=== PATIENT | female | born 1985 | race American Indian/Alaskan Native ===

== ENCOUNTER 2017-01-11 19:48 | Emergency (ER) | payer MEDICAID ==
--- NOTE | 2017-01-11 22:28 | Emergency Department Report ---
ED General Adult HPI - General Chief complaint: Upper Respiratory Infection Stated complaint: DIZZY, SORE THROAT, HEADACHE Time Seen by Provider: 01/11/17 22:14 Source: patient Mode of arrival: Ambulatory Limitations: No Limitations - History of Present Illness Initial comments: PT c/o flu symptoms that started Tuesday night. PT c/o fever, cough, chills, body aches and headache. 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 PT states she worked last night and her symptoms were worse. PT states she felt sob while at the club. PT states she took Theraflu today and it helped her fever. MD Complaint: fever -: Gradual Location: head, chest Severity scale (0 -10): 9 Quality: aching Consistency: constant Improves with: medication (helps fever ) Worsens with: other (working ) Associated Symptoms: fever/chills, headaches, loss of appetite, malaise, shortness of breath. denies: chest pain, nausea/vomiting - Related Data Previous Rx's Medication Instructions Recorded Last Taken Type Albuterol Sulfate [Ventolin HFA] 2 puff IH Q4H PRN #1 hfa.aer.ad 01/11/17 Unknown Rx Benzonatate [Tessalon Perles] 100 mg PO Q8HR PRN #12 capsule 01/11/17 Unknown Rx Ibuprofen [Motrin] 600 mg PO Q8H PRN #15 tablet 01/11/17 Unknown Rx Allergies Allergy/AdvReac Type Severity Reaction Status Date / Time acetaminophen [From Percocet] Allergy Rash Verified 10/03/15 11:25 oxycodone HCl [From Percocet] Allergy Rash Verified 10/03/15 11:25 ED Review of Systems ROS: Stated complaint: DIZZY, SORE THROAT, HEADACHE Other details as noted in HPI Comment: All other systems reviewed and negative Constitutional: fever, malaise Respiratory: cough ED Past Medical Hx - Past Medical History Previous Medical History?: No Additional medical history: ANEMIA - Surgical History Past Surgical History?: No - Social History Smoking Status: Never Smoker Substance Use Type: Alcohol - Medications Home Medications: Home Medications Medication Instructions Recorded Confirmed Last Taken Type Albuterol Sulfate [Ventolin HFA] 2 puff IH Q4H PRN #1 hfa.aer.ad 01/11/17 Unknown Rx Benzonatate [Tessalon Perles] 100 mg PO Q8HR PRN #12 capsule 01/11/17 Unknown Rx Ibuprofen [Motrin] 600 mg PO Q8H PRN #15 tablet 01/11/17 Unknown Rx ED Physical Exam - General Limitations: No Limitations General appearance: alert, in no apparent distress - Head Head exam: Present: atraumatic, normocephalic, normal inspection - Eye Eye exam: Present: normal appearance. Absent: conjunctival injection - ENT ENT exam: Present: normal exam, mucous membranes moist, TM's normal bilaterally , normal external ear exam - Expanded ENT Exam Expanded Mouth exam: Absent: drooling, trismus Throat exam: Positive: other (clear post nasal drainage ). Negative: tonsillar erythema, tonsillomegaly, tonsillar exudate - Neck Neck exam: Present: normal inspection, full ROM. Absent: tenderness, lymphadenopathy - Respiratory Respiratory exam: Present: normal lung sounds bilaterally. Absent: respiratory distress, wheezes, rhonchi - Cardiovascular Cardiovascular Exam: Present: regular rate, normal rhythm, normal heart sounds - GI/Abdominal GI/Abdominal exam: Present: soft. Absent: tenderness - Extremities Exam Extremities exam: Present: normal inspection, full ROM - Back Exam Back exam: Present: normal inspection, full ROM. Absent: tenderness - Neurological Exam Neurological exam: Present: alert, oriented X3 - Psychiatric Psychiatric exam: Present: normal affect, normal mood - Skin Skin exam: Present: warm, dry, intact ED Course Vital Signs 01/11/17 20:46 Temperature 99.8 F H Pulse Rate 72 Respiratory 18 Rate Blood Pressure 117/85 O2 Sat by Pulse 95 Oximetry - Reevaluation(s) Reevaluation #1: 01/11/17 22:35 PT aware of PE findings and plan of care. PT has no questions at this time - Pulse Oximetry Interpretation Digit-Finger Initial Pulse Oximetry Readin Actions Taken: none ED Medical Decision Making - Differential Diagnosis viral uri, influenza Critical care attestation.: If time is entered above; I have spent that time in minutes in the direct care of this critically ill patient, excluding procedure time. ED Disposition Clinical Impression: Viral URI with cough Disposition: DISCHARGED TO HOME OR SELFCARE Is pt being admited?: No Does the pt Need Aspirin: No Condition: Stable Instructions: Viral Syndrome (ED), Upper Respiratory Infection (ED) Referrals: PRIMARY CARE, [Primary Care Provider] - 3-5 Days NOE TERRELL MD [Staff Physician] - 3-5 Days Forms: Work/School Release Form(ED) Time of Disposition: 22:39
[2017-01-11] MEDS ORDERED: MOTRIN PO ONE (22:31)
[2017-01-11] MEDS ORDERED: TESSALON PERLES PO ONE (22:31)
[2017-01-11 22:54] VITALS: BP 107/73
== END 2017-01-11 22:55 | disposition home or self-care (01) ==
LOC: ED 19:48
DX: J06.9 Acute upper respiratory infection, unspecified (principal); D64.9 Anemia, unspecified; Z88.8 Allergy status to other drugs, medicaments and biological substances
CPT/HCPCS: 87400; 99282

== ENCOUNTER 2017-03-16 08:19 | Emergency (ER) | payer MEDICAID ==
[2017-03-16 08:28] VITALS: BP 105/70
[2017-03-16 08:52] LABS: Basophils % (Auto) 0.2 % (0.0-1.8); Eosinophils % (Auto) 0.3 % (0.0-4.3); Hematocrit 36.4 % (30.3-42.9); Hemoglobin 12.1 gm/dl (10.1-14.3); Mean Corpuscular HGB Conc 33 % (30-34); Mean Corpuscular Hemoglobin 30 pg (28-32); Mean Corpuscular Volume 89 fl (79-97); Platelet Count 300 K/mm3 (140-440); Red Blood Count 4.08 M/mm3 (3.65-5.03); Red Cell Distribution Width 14.1 % (13.2-15.2)
[2017-03-16 09:20] LABS: Alanine Aminotransferase 14 units/L (7-56); Albumin 4.3 g/dL (3.9-5); Albumin/Globulin Ratio 1.1 %; Alkaline Phosphatase 50 units/L (35-129); Anion Gap 18 mmol/L; Blood Urea Nitrogen 6 mg/dL (7-17); Calcium 9.7 mg/dL (8.4-10.2); Carbon Dioxide 26 mmol/L (22-30); Chloride 96.7 mmol/L (98-107); Glucose 90 mg/dL (65-100); Lipase 12 units/L (13-60); Potassium 3.6 mmol/L (3.6-5.0); Sodium 137 mmol/L (137-145); Total Protein 8.2 g/dL (6.3-8.2)
[2017-03-16 11:02] LABS: Bacteria,Urine 1+ /HPF (Negative); Bilirubin,Urine NEG (Negative); Blood,Urine SM (Negative); Ketones,Urine NEG (Negative); Leukocyte Esterase,Urine MOD (Negative); Mucus,Urine FEW /HPF; Nitrite,Urine NEG (Negative); Protein,Urine <15 mg/dL mg/dL (Negative); Urobilinogen,Urine < 2.0 mg/dL (<2.0)
[2017-03-17] MEDS ORDERED: NACL ONE (18:25)
== END 2017-03-16 08:30 | disposition left against medical advice (07) ==
LOC: ED 08:19
DX: R10.9 Unspecified abdominal pain (principal); R42 Dizziness and giddiness; Z53.21 Procedure and treatment not carried out due to patient leaving prior to being seen by health care provider
CPT/HCPCS: 36415; 80053; 81001; 83690; 84703; 85025

== ENCOUNTER 2017-03-17 08:28 | Emergency (ER) | payer MEDICAID ==
[2017-03-17 10:04] LABS: Basophils % (Auto) 0.5 % (0.0-1.8); Eosinophils % (Auto) 0.6 % (0.0-4.3); Hematocrit 36.2 % (30.3-42.9); Mean Corpuscular HGB Conc 33 % (30-34); Mean Corpuscular Hemoglobin 30 pg (28-32); Mean Corpuscular Volume 89 fl (79-97); Platelet Count 283 K/mm3 (140-440); Red Blood Count 4.06 M/mm3 (3.65-5.03); Red Cell Distribution Width 13.7 % (13.2-15.2); White Blood Count 6.7 K/mm3 (4.5-11.0)
[2017-03-17 10:35] LABS: Alanine Aminotransferase 11 units/L (7-56); Alkaline Phosphatase 47 units/L (35-129); Anion Gap 21 mmol/L; Blood Urea Nitrogen 6 mg/dL (7-17); Calcium 9.3 mg/dL (8.4-10.2); Carbon Dioxide 21 mmol/L (22-30); Chloride 96.7 mmol/L (98-107); Glucose 130 mg/dL (65-100); Lipase 15 units/L (13-60); Potassium 3.8 mmol/L (3.6-5.0); Sodium 135 mmol/L (137-145); Total Protein 7.9 g/dL (6.3-8.2)
[2017-03-17 14:37] LABS: Bacteria,Urine 1+ /HPF (Negative); Bilirubin,Urine NEG (Negative); Blood,Urine NEG (Negative); Ketones,Urine TR mg/dL (Negative); Leukocyte Esterase,Urine MOD (Negative); Mucus,Urine FEW /HPF; Nitrite,Urine NEG (Negative); Protein,Urine <15 mg/dL mg/dL (Negative); Urobilinogen,Urine < 2.0 mg/dL (<2.0)
[2017-03-17] MEDS ORDERED: TORADOL IV ONE (16:22)
[2017-03-17] MEDS ORDERED: BENTYL IM ONE (16:22)
[2017-03-17] MEDS ORDERED: NACL 0.9% 1000 ML 1,000 ML IV ONE (16:22)
--- NOTE | 2017-03-17 16:23 | Emergency Department Report ---
ED General Adult HPI - General Chief complaint: Abdominal Pain Stated complaint: ABD PAIN Time Seen by Provider: 03/17/17 16:15 Source: patient, RN notes reviewed Mode of arrival: Ambulatory Limitations: No Limitations - History of Present Illness Initial comments: This is a 32-year-old female. She is previously unknown to me. Denies having any surgical history, denies past medical history, does not have a primary care doctor. The patient presents to the ER complaining of abdominal pain. The abdominal pains described as cramping, sharp, aching and burning. It has been present on and off since March 08. It radiates to the back. There is no nausea, vomiting or diarrhea. No irritative or obstructive urinary symptoms. No chest pain or shortness of breath. No fevers. Patient reports at least 2 sexual partners within the past year. No dyspareunia. Uncertain if she has new vaginal discharge. -: Gradual Location: abdomen, pelvis Radiation: back Quality: burning, stabbing, aching, sharp Consistency: intermittent Improves with: rest Worsens with: movement Associated Symptoms: denies: confusion, chest pain, cough, diaphoresis, fever/ chills, headaches, loss of appetite, malaise, shortness of breath, syncope, weakness - Related Data Previous Rx's Medication Instructions Recorded Last Taken Type Doxycycline [Vibramycin] 100 mg PO Q12HR #28 capsule 03/17/17 Unknown Rx Ibuprofen [Motrin] 600 mg PO Q8H PRN #30 tablet 03/17/17 Unknown Rx Ondansetron [Zofran Odt] 4 mg PO QID PRN #20 tab.rapdis 03/17/17 Unknown Rx Polyethylene Glycol 3350 [Miralax 17 gm PO QDAY #30 packet 03/17/17 Unknown Rx 3350] Allergies Allergy/AdvReac Type Severity Reaction Status Date / Time oxycodone HCl [From Percocet] Allergy Rash Verified 03/17/17 08:52 ED Review of Systems ROS: Stated complaint: ABD PAIN Other details as noted in HPI Constitutional: denies: fever Eyes: denies: vision change ENT: denies: epistaxis Respiratory: denies: cough Cardiovascular: denies: chest pain Gastrointestinal: abdominal pain Genitourinary: denies: dysuria Musculoskeletal: as per HPI Skin: as per HPI Neurological: as per HPI. denies: weakness Psychiatric: as per HPI ED Past Medical Hx - Past Medical History Previous Medical History?: No Additional medical history: ANEMIA - Surgical History Past Surgical History?: No - Social History Smoking Status: Never Smoker Substance Use Type: Alcohol - Medications Home Medications: Home Medications Medication Instructions Recorded Confirmed Last Taken Type Doxycycline [Vibramycin] 100 mg PO Q12HR #28 capsule 03/17/17 Unknown Rx Ibuprofen [Motrin] 600 mg PO Q8H PRN #30 tablet 03/17/17 Unknown Rx Ondansetron [Zofran Odt] 4 mg PO QID PRN #20 tab.rapdis 03/17/17 Unknown Rx Polyethylene Glycol 3350 [Miralax 17 gm PO QDAY #30 packet 03/17/17 Unknown Rx 3350] ED Physical Exam - General Limitations: No Limitations General appearance: alert, in no apparent distress - Head Head exam: Present: atraumatic, normocephalic - Eye Eye exam: Present: normal appearance, EOMI. Absent: nystagmus - ENT ENT exam: Present: normal exam, normal orophraynx, mucous membranes moist, normal external ear exam - Neck Neck exam: Present: normal inspection, full ROM. Absent: tenderness, meningismus - Respiratory Respiratory exam: Present: normal lung sounds bilaterally. Absent: respiratory distress, wheezes, rales, rhonchi, stridor, chest wall tenderness, accessory muscle use, decreased breath sounds, prolonged expiratory - Cardiovascular Cardiovascular Exam: Present: regular rate, normal rhythm, normal heart sounds. Absent: bradycardia, tachycardia, irregular rhythm, systolic murmur, diastolic murmur, rubs, gallop - GI/Abdominal GI/Abdominal exam: Present: soft, tenderness, normal bowel sounds, other (there is suprapubic left lower quadrant and minimal right lower quadrant tenderness. There is no rebound, guarding or peritoneal signs.). Absent: distended, guarding, rebound, rigid, pulsatile mass - External exam: Present: normal external exam Speculum exam: Present: normal speculum exam, cervical discharge Bi-manual exam: Present: cervical motion tendernes, adnexal tenderness, uterine tenderness. Absent: uterine enlargement - Extremities Exam Extremities exam: Present: normal inspection, full ROM, normal capillary refill. Absent: tenderness, pedal edema, joint swelling, calf tenderness - Back Exam Back exam: Present: normal inspection, full ROM. Absent: tenderness, CVA tenderness (R), CVA tenderness (L), muscle spasm, paraspinal tenderness, vertebral tenderness - Neurological Exam Neurological exam: Present: alert, oriented X3, normal gait, other (Extraocular movements intact. Tongue midline. No facial droop. Facial sensation intact to light touch in the V1, V2, V3 distribution bilaterally. 5 and 5 strength in 4 extremities.. Sensation is intact to light touch in 4 extremities.). Absent : motor sensory deficit - Psychiatric Psychiatric exam: Present: normal affect, normal mood - Skin Skin exam: Present: warm, dry, intact, normal color. Absent: rash ED Course Vital Signs 03/17/17 03/17/17 03/17/17 08:53 16:24 16:43 Temperature 98 F Pulse Rate 68 Respiratory 16 16 16 Rate Blood Pressure 95/68 Blood Pressure [Left] O2 Sat by Pulse 100 100 Oximetry 03/17/17 03/17/17 17:54 20:30 Temperature Pulse Rate 71 75 Respiratory 16 18 Rate Blood Pressure Blood Pressure 101/64 105/69 [Left] O2 Sat by Pulse 99 98 Oximetry - Reevaluation(s) Reevaluation #1: 03/17/17 17:24 differential diagnosis: Ovarian cyst, pelvic inflammatory disease , appendicitis, endometriosis Assessment and plan: 32-year-old female with subacute abdominal pain, afebrile, lower abdominal tenderness, vaginal discharge, cervical motion tenderness, adnexal tenderness. Most likely pelvic inflammatory disease. We will obtain CT scan to some surgical disease, an ultrasound to exclude torsion, although I think torsion is very unlikely. We will treat her empirically for pelvic inflammatory disease. The patient's pain will be treated aggressively. Reevaluation #2: 03/17/17 20:24 patient tolerating liquid feeds. belly soft on repeat exam ct a/p appreciated will treat for PID as planned will also d/c on miralax uti a possibility, possibly chlamydia cystitis 03/17/17 20:26 ED Medical Decision Making - Lab Data Result diagrams: 03/17/17 09:01 03/17/17 09:01 Vital Signs 03/17/17 03/17/17 03/17/17 08:53 16:24 16:43 Temperature 98 F Pulse Rate 68 Respiratory 16 16 16 Rate Blood Pressure 95/68 O2 Sat by Pulse 100 100 Oximetry Lab Results 0503/17/17 03/17/17 Range/Units 09:01 09:01 14:08 WBC 6.7 (4.5-11.0) K/mm3 RBC 4.06 (3.65-5.03) M/mm3 Hgb 12.0 (10.1-14.3) gm/dl Hct 36.2 (30.3-42.9) % MCV 89 (79-97) fl MCH 30 (28-32) pg MCHC 33 (30-34) % RDW 13.7 (13.2-15.2) % Plt Count 283 (140-440) K/mm3 Lymph % (Auto) 28.5 (13.4-35.0) % Gr[place]gs % (Auto) 8.6 H (0.0-7.3) % Eos % (Auto) 0.6 (0.0-4.3) % Baso % (Auto) 0.5 (0.0-1.8) % Lymph # 1.9 (1.2-5.4) K/mm3 Griggs # 0.6 (0.0-0.8) K/mm3 Eos # 0.0 (0.0-0.4) K/mm3 Baso # 0.0 (0.0-0.1) K/mm3 Seg Neutrophils % 61.8 (40.0-70.0) % Seg Neutrophils # 4.2 (1.8-7.7) K/mm3 Sodium 135 L (137-145) mmol/L Potassium 3.8 (3.6-5.0) mmol/L Chloride 96.7 L (98-107) mmol/L Carbon Dioxide 21 L (22-30) mmol/L Anion Gap 21 mmol/L BUN 6 L (7-17) mg/dL Creatinine 0.4 L (0.7-1.2) mg/dL Estimated GFR > 60 ml/min BUN/Creatinine Ratio 15.00 % Glucose 130 H (65-100) mg/dL Calcium 9.3 (8.4-10.2) mg/dL Total Bilirubin 0.20 (0.1-1.2) mg/dL AST 16 (5-40) units/L ALT 11 (7-56) units/L Alkaline Phosphatase 47 (35-129) units/L Total Protein 7.9 (6.3-8.2) g/dL Albumin 4.0 (3.9-5) g/dL Albumin/Globulin Ratio 1.0 % Lipase 15 (13-60) units/L Urine Color Yellow (Yellow) Urine Turbidity Clear (Clear) Urine pH 6.0 (5.0-7.0) Ur Specific Cross 1.008 (1.003-1.030) Urine Protein <15 mg/dl (Negative) mg/dL Urine Glucose (UA) Neg (Negative) mg/dL Urine Ketones Tr (Negative) mg/dL Urine Blood Neg (Negative) Urine Nitrite Neg (Negative) Urine Bilirubin Neg (Negative) Urine Urobilinogen < 2.0 (<2.0) mg/dL Ur Leukocyte Esterase Mod (Negative) Urine WBC (Auto) 6.0 (0.0-6.0) /HPF Urine RBC (Auto) 9.0 (0.0-6.0) /HPF U Epithel Cells (Auto) 6.0 (0-13.0) /HPF Urine Bacteria (Auto) 1+ (Negative) /HPF Urine Mucus Few /HPF Urine HCG, Qual (Negative) 03/17/ Range/Units 14:08 WBC (4.5-11.0) K/mm3 RBC (3.65-5.03) M/mm3 Hgb (10.1-14.3) gm/dl Hct (30.3-42.9) % MCV (79-97) fl MCH (28-32) pg MCHC (30-34) % RDW (13.2-15.2) % Plt Count (140-440) K/mm3 Lymph % (Auto) (13.4-35.0) % Griggs % (Auto) (0.0-7.3) % Eos % (Auto) (0.0-4.3) % Baso % (Auto) (0.0-1.8) % Lymph # (1.2-5.4) K/mm3 Griggs # (0.0-0.8) K/mm3 Eos # (0.0-0.4) K/mm3 Baso # (0.0-0.1) K/mm3 Seg Neutrophils % (40.0-70.0) % Seg Neutrophils # (1.8-7.7) K/mm3 Sodium (137-145) mmol/L Potassium (3.6-5.0) mmol/L Chloride (98-107) mmol/L Carbon Dioxide (22-30) mmol/L Anion Gap mmol/L BUN (7-17) mg/dL Creatinine (0.7-1.2) mg/dL Estimated GFR ml/min BUN/Creatinine Ratio % Glucose (65-100) mg/dL Calcium (8.4-10.2) mg/dL Total Bilirubin (0.1-1.2) mg/dL AST (5-40) units/L ALT (7-56) units/L Alkaline Phosphatase (35-129) units/L Total Protein (6.3-8.2) g/dL Albumin (3.9-5) g/dL Albumin/Globulin Ratio % Lipase (13-60) units/L Urine Color (Yellow) Urine Turbidity (Clear) Urine pH (5.0-7.0) Ur Specific Cross (1.003-1.030) Urine Protein (Negative) mg/dL Urine Glucose (UA) (Negative) mg/dL Urine Ketones (Negative) mg/dL Urine Blood (Negative) Urine Nitrite (Negative) Urine Bilirubin (Negative) Urine Urobilinogen (<2.0) mg/dL Ur Leukocyte Esterase (Negative) Urine WBC (Auto) (0.0-6.0) /HPF Urine RBC (Auto) (0.0-6.0) /HPF U Epithel Cells (Auto) (0-13.0) /HPF Urine Bacteria (Auto) (Negative) /HPF Urine Mucus /HPF Urine HCG, Qual Negative (Negative) - Radiology Data Radiology results: report reviewed, image reviewed Ultrasound of the vagina demonstrates free pelvic fluid which is physiologic likely. No evidence of torsion is noted. Patient refused IV contrast. She is able to articulate the risks, benefits, alternatives in her own words. Therefore, CT scan changes to noncontrast study. CT scan with oral contrast: Bladder wall is mildly diffusely thickened measuring 4.2 mm. The bladder is not optimally distended. Cystitis is a possibility. Moderate stool present throughout the colon. The appendix is normal. Bibasilar atelectasis or fibrosis noted. Critical care attestation.: If time is entered above; I have spent that time in minutes in the direct care of this critically ill patient, excluding procedure time. ED Disposition Clinical Impression: Abdominal pain Disposition: DISCHARGED TO HOME OR SELFCARE Is pt being admited?: No Does the pt Need Aspirin: No Condition: Stable Instructions: Pelvic Inflammatory Disease (ED) Additional Instructions: As we discussed, your laboratory studies appeared to be within normal limits. You are not . The addition, your pelvic ultrasound was within normal limits. Given all this, you'll be treated empirically for disease called pelvic inflammatory disease. We typically treat young females with unexplained lower abdominal pain to protect your ability to have children safely in the future. Cultures were sent today, and results will be available next 3-5 days. Please have your primary care doctor call the medical records department to obtain your culture results. Take the antibiotic therapy as directed. Take the nausea medication and pain medication as directed. I recommend outpatient testing for sexually transmitted diseases, including hepatitis, syphilis and HIV. I also recommend that you abstain from sexual activity until you have completed her antibiotic therapy, a physician states that it is safe for you to resume sexual activity, and any partners that you have been sexually active with have been tested/ treated/evaluated for sexual transmitted diseases. Please follow-up with physician within 3-5 days. I recommend that you return to the ER right away with worsening pain, migration of pain, intractable nausea/vomiting, inability tolerate liquid feeds. Prescriptions: Doxycycline [Vibramycin] 100 mg PO Q12HR #28 capsule Ibuprofen [Motrin] 600 mg PO Q8H PRN #30 tablet PRN Reason: Pain Ondansetron [Zofran Odt] 4 mg PO QID PRN #20 tab.rapdis PRN Reason: Nausea Polyethylene Glycol 3350 [Miralax 3350] 17 gm PO QDAY #30 packet Referrals: RL LOWE MD [Primary Care Provider] - 3-5 Days LANDRY KEATING MD [Staff Physician] - 3-5 Days JAMAL VILLEGAS MD [Staff Physician] - 3-5 Days
[2017-03-17] MEDS ORDERED: ROCEPHIN 250 MG in NACL 0.9% 50 ML IV ONE (16:31)
[2017-03-17] MEDS ORDERED: VIBRAMYCIN PO ONE (16:31)
--- NOTE | 2017-03-17 18:30 | Ultrasound Report ---
FINAL REPORT EXAM: US TRANSVAGINAL HISTORY: pelvic pain TECHNIQUE: Ultrasound evaluation of the pelvis using TRANSVAGINAL technique PRIORS: None. FINDINGS: Uterus size and shape are normal, 8.3 x 4.2 x 5.7 cm. No evidence of uterine mass. The endometrium is homogenous. Endometrial thickness is 9.1mm. There is nonspecific minimal cul-de-sac free fluid. This may be physiologic. Normal ovarian size. No evidence of solid ovarian mass. Ovarian follicles present bilaterally. Ovarian/adnexal blood flow is present. The adnexa are normal. Right ovary: 4.2 x 2.9 x 3.8 cm Left ovary: 2.7 x 1.7 x 1.5 cm IMPRESSION: The trace pelvic free fluid may be physiologic. No other significant finding
--- NOTE | 2017-03-17 18:33 | Ultrasound Report ---
FINAL REPORT EXAM: US PELVIS DUPLEX DOPPLER COMP HISTORY: pelvic pain TECHNIQUE: Ultrasound evaluation of the pelvis using TRANSABDOMINAL technique PRIORS: Endovaginal pelvic ultrasound 03/17/2017 FINDINGS: Transabdominal examination limited by intestinal gas. Uterus size and shape are normal, 8.3 x 4.2 x 5.7 cm. No evidence of uterine mass. The endometrium is homogenous. Endometrial thickness is 9.1mm. There is nonspecific minimal cul-de-sac free fluid. This may be physiologic. Normal ovarian size. No evidence of solid ovarian mass. Ovarian follicles present bilaterally. Ovarian/adnexal blood flow is present. The adnexa are normal. Right ovary: 4.2 x 2.9 x 3.8 cm Left ovary: 2.7 x 1.7 x 1.5 cm IMPRESSION: Minimal free fluid in the pelvis may be physiologic. No other significant finding
--- NOTE | 2017-03-17 19:43 | Cat Scan Report ---
FINAL REPORT EXAM: CT ABDOMEN PELVIS WO CON HISTORY: Generalized abdominal pain TECHNIQUE: Enhanced CT of the abdomen and pelvis at 1.25 mm and 2.5 millimeter axial increments. Coronal and sagittal reconstruction was also performed. Contrast: 100 cc Omnipaque 300 given IV. Oral contrast was also given. PRIORS: Ultrasound pelvis 03/17/2017 FINDINGS: The bladder wall appears mildly and diffusely thickened measuring 4.2 mm in thickness. The bladder is not optimally distended. However, the possibility of cystitis or UTI should be considered. There is no evidence for renal calculi or hydronephrosis. No evidence for ureteral or bladder calculus is seen. No evidence for renal or bladder mass is noted. Otherwise, within the limits of a noncontrast exam, the liver, spleen, pancreas, gallbladder, and adrenal glands are unremarkable. No evidence for retroperitoneal or pelvic lymphadenopathy is seen. Moderate stool is present throughout the colon. The small bowel loops have normal caliber. No fluid collection, inflammatory change, or free air is seen within the abdomen or pelvis. The appendix is normal. Within the pelvis, the uterus is elongated. The right ovary appears prominent in size containing a follicle, as noted on recent ultrasound. Images through the upper abdomen include the lung bases which demonstrates minimal linear bibasilar atelectasis or fibrosis posteriorly. Bony structures show no focal abnormalities. Partial sacralization to the left of L5 is a normal variant. IMPRESSION: 1. Mild diffuse wall thickening of the bladder although bladder is not optimally distended. Correlation with possible cystitis or UTI should be considered. 2. Moderate stool is present throughout the colon.
[2017-03-17 20:51] VITALS: BP 105/69
--- NOTE | 2017-03-22 10:22 | ED Elopement Review ---
ED Pt Elopement review - Results review Lab results: Laboratory Tests 03/17/17 03/17/17 03/17/17 09:01 09:01 14:08 WBC 6.7 RBC 4.06 Hgb 12.0 Hct 36.2 MCV 89 MCH 30 MCHC 33 RDW 13.7 Plt Count 283 Lymph % (Auto) 28.5 Marion % (Auto) 8.6 H Eos % (Auto) 0.6 Baso % (Auto) 0.5 Lymph # 1.9 Marion # 0.6 Eos # 0.0 Baso # 0.0 Seg Neutrophils % 61.8 Seg Neutrophils # 4.2 Sodium 135 L Potassium 3.8 Chloride 96.7 L Carbon Dioxide 21 L Anion Gap 21 BUN 6 L Creatinine 0.4 L Estimated GFR > 60 BUN/Creatinine Ratio 15.00 Glucose 130 H Calcium 9.3 Total Bilirubin 0.20 AST 16 ALT 11 Alkaline Phosphatase 47 Total Protein 7.9 Albumin 4.0 Albumin/Globulin Ratio 1.0 Lipase 15 Urine Color Yellow Urine Turbidity Clear Urine pH 6.0 Ur Specific Godwin 1.008 Urine Protein <15 mg/dl Urine Glucose (UA) Neg Urine Ketones Tr Urine Blood Neg Urine Nitrite Neg Urine Bilirubin Neg Urine Urobilinogen < 2.0 Ur Leukocyte Esterase Mod Urine WBC (Auto) 6.0 Urine RBC (Auto) 9.0 U Epithel Cells (Auto) 6.0 Urine Bacteria (Auto) 1+ Urine Mucus Few Urine HCG, Qual C.trachomatis DNA (SDA) N.gonorrhoeae DNA (SDA) 03/17/17 03/17/17 14:08 16:31 WBC RBC Hgb Hct MCV MCH MCHC RDW Plt Count Lymph % (Auto) Marion % (Auto) Eos % (Auto) Baso % (Auto) Lymph # Marion # Eos # Baso # Seg Neutrophils % Seg Neutrophils # Sodium Potassium Chloride Carbon Dioxide Anion Gap BUN Creatinine Estimated GFR BUN/Creatinine Ratio Glucose Calcium Total Bilirubin AST ALT Alkaline Phosphatase Total Protein Albumin Albumin/Globulin Ratio Lipase Urine Color Urine Turbidity Urine pH Ur Specific Godwin Urine Protein Urine Glucose (UA) Urine Ketones Urine Blood Urine Nitrite Urine Bilirubin Urine Urobilinogen Ur Leukocyte Esterase Urine WBC (Auto) Urine RBC (Auto) U Epithel Cells (Auto) Urine Bacteria (Auto) Urine Mucus Urine HCG, Qual Negative C.trachomatis DNA (SDA) Not detected N.gonorrhoeae DNA (SDA) Detected H - Call Back decision Pt Call Back Decision: Pt to F/U with PMD (patient tested positive for gonorrhea , should follow up with the primary care doctor for this.)
== END 2017-03-17 20:50 | disposition home or self-care (01) ==
LOC: ED 08:28
DX: R10.32 Left lower quadrant pain (principal); R10.31 Right lower quadrant pain; Z88.6 Allergy status to analgesic agent
CPT/HCPCS: 36415; 74176; 76830; 80053; 81001; 81025; 83690; 85025; 87086; 87210; 87591; 93975; 96365; 96375; 99285; J0500; J0696; J1885; J7030